=== PATIENT | male | born 1965 | race Caucasian/White ===

== ENCOUNTER 2019-08-03 09:30 | Emergency (ER) | payer BC ==
[~2019-08-03] VITALS: Ht 185.4 cm; Wt 90.0 kg
[2019-08-03 10:38] VITALS: BP 133/90; PULSE 71; TEMP 98.2
== END 2019-08-03 10:38 | disposition left against medical advice (07) ==
LOC: COL.ER 09:30
DX: R55 Syncope and collapse (principal); R06.02 Shortness of breath; R07.89 Other chest pain
CPT/HCPCS: J7030